=== PATIENT | female | born 1990 | race Caucasian/White ===

== ENCOUNTER 2017-01-06 06:09 | Inpatient (IN) | payer OTHER ==
[~2017-01-06] VITALS: Ht 165.1 cm; Wt 85.3 kg
[2017-01-06] MEDS ORDERED: Oxytocin 30 Units/500 mL LR 30 UNITS in IV Premix 1 EACH IV PRN (07:20)
[2017-01-06] MEDS ORDERED: Sodium Chloride LOK Flush 10 mL Syringe IVFLUSH PRN (07:20)
[2017-01-06] MEDS ORDERED: Hemorrhage Kit, Post Partum XX ONE (07:20)
[2017-01-06] MEDS ORDERED: Carboprost 250 mCg/mL Inj IM PRN (07:20)
[2017-01-06] MEDS ORDERED: Oxytocin 10 Unit/mL Inj IM PRN (07:20)
[2017-01-06] MEDS ORDERED: Methylergonovine 0.2 mg/mL Inj IM PRN (07:20)
[2017-01-06 08:03] LABS: Mean Corpuscular Hemoglobin 31.4 pg (27.0-35.0); Mean Corpuscular Volume 92.7 fL (81-100)
--- NOTE | 2017-01-06 09:19 | PCM.HPOB ---
Subjective Referring Provider: Admitting Physician: Miguel Angel Mcgrath MD Primary Care Physician: Miguel Angel Mcgrath MD Attending Physician: Miguel Angel Mcgrath MD Chief Complaint water broke at 3:15am History of Present History of Present Illness 26yo with generally unremarkable course presents for ruptured membranes. Testing consistent, cervical exam fingertip by nurse, no contractions , feeling well, no complaints. OB History: (1), Para (0) Obstetrical Complications: None Past Medical History Obstetrical History: Primiparous Gynecologic History: Unremarkable Medical History: Anxiety Disorder, No medications. Surgical History: Unremarkable Hx Tobacco Use: No Smoking Status: Never Smoker Past Family History Living Arrangement: with Family Genetic Screening/Counseling Genetic Screening/Counseling: Unknown Review of Systems ROS Neg except fluid drainage. Medications Home medications ranitidine, vitamins Allergy Coded Allergies: No Known Allergies (Unverified , 01/06/17) Exam Objective See Office records Constitutional: Well-developed HEENT: Atraumatic, Scleral Anicteric Abdomen: Gravid Skin: Rashes (No ) Neurological/Psychiatric: Alert, Oriented X3, Cooperative, No Acute Distress Neuro: Grossly Neurologically Intact Additional Information No cervical exam due to rupture Labs/Diagnostics Maternal Blood Type: O Hx Rho(D) Immune Globulin: No (Positive) Group B Strep Results: Negative Previous with GBS: No Rubella: Immune Lab History: Positive for: Hx Chicken Pox, Hx Herpes (Not during ) OB Intrapartum Assessment/Plan Problems: (1) Qualifiers: Weeks of gestation: 37 weeks Qualified Code: Z3A.37 - 37 weeks gestation of Plan: Ruptured, no signs of labor. Pt would like conservative/non- interventional approach. Monitor for 12 hours. If not racquel at 3pm, we'll start pitocin. Sooner per patient preference. Status: Acute ICD Code: Z33.1 Pain Evaluation: Adequate Pain Control Miguel Angel Mcgrath MD January 06, 2017 09:19
[2017-01-06] MEDS ORDERED: PREN1TAB87 PO (09:41)
[2017-01-06] MEDS: Oxytocin 30 Units/500 mL LR 30 UNITS in IV Premix 1 EACH IV PRN (15:02)
[2017-01-06] MEDS: Lactated Ringer's 1,000 ML IV PRN (15:02)
--- NOTE | 2017-01-06 19:11 | PCM.PNOBIP ---
Subjective Date of Service January 06, 2017 Subjective Not really feeling contractions much but started pitocin a few hours ago. Frustrated a little but otherwise no complaints. Pain Management: Good Pain Control, No or Minimal Pain Gastrointestinal: No N/V Activity: Ambulating Independently Group B Strep Results: Negative Rubella: Immune Blood Type: O Labs Laboratory Tests 01/06/17 07:50: White Blood Count 7.8, Red Blood Count 3.82, Hemoglobin 12.0, Hematocrit 35.4, Mean Corpuscular Volume 92.7, Mean Corpuscular Hemoglobin 31.4, Mean Corpuscular Hemoglobin Concent 33.9, Red Cell Distribution Width 12.5, Platelet Count 254 Exam Vital Signs Vital Signs Contraction frequency in minutes: MVUs: Vital Signs: VS reviewed, stable Heart Tracings Heart Tones Baseline bpm Heart Rate Accelleration: Present Heart Rate Deceleration: Absent Tocometry/IUPC Contraction frequency in minutes: MVUs: Sterile Vaginal Exam No exam due to rupture Exam General: Alert, Oriented X3, Cooperative, No Acute Distress OB Intrapartum Assessment/Plan Problems: (1) Qualifiers: Weeks of gestation: 37 weeks Qualified Code: Z3A.37 - 37 weeks gestation of Status: Acute ICD Code: Z33.1 Intrapartum plan: Start pitocin (continue, currently at 14. Discussed variable timeframe with PROM at term. ) Pain Evaluation: Adequate Pain Control Miguel Angel Mcgrath MD January 06, 2017 19:11
[2017-01-07] MEDS ORDERED: fentaNYL-PF 50 mCg/mL 2 mL Inj IVPUSH PRN (04:25)
--- NOTE | 2017-01-07 07:57 | PCM.PNOBIP ---
Subjective Date of Service January 07, 2017 Delivery plan: Spontaneous Vaginal Delivery Visit History PROM at 37 weeks, watched for 12 hours after rupture, due to her request, started pitocin yesterday afternoon. Overnight Pitocin increased per protocol up to 18 but developed worsening pain. Single dose fentanyl, cervical check showed still closed. Pitocin discontinued at that time -- about 4 hours ago. Pain Management: No or Minimal Pain Gastrointestinal: No N/V Activity: Ambulating Independently Group B Strep Results: Negative Rubella: Immune Blood Type: O Labs Laboratory Tests 01/06/17 07:50: White Blood Count 7.8, Red Blood Count 3.82, Hemoglobin 12.0, Hematocrit 35.4, Mean Corpuscular Volume 92.7, Mean Corpuscular Hemoglobin 31.4, Mean Corpuscular Hemoglobin Concent 33.9, Red Cell Distribution Width 12.5, Platelet Count 254 Exam Vital Signs Vital Signs Contraction frequency in minutes: MVUs: Heart Tracings Heart Tones Baseline 130 bpm Heart Rate Variability: Moderate Heart Rate Accelleration: Absent Heart Rate Deceleration: Absent Tocometry/IUPC Contraction frequency in minutes: MVUs:3-6 Exam General: Alert, Oriented X3, Cooperative, No Acute Distress OB Intrapartum Assessment/Plan Problems: (1) Qualifiers: Weeks of gestation: 37 weeks Qualified Code: Z3A.37 - 37 weeks gestation of Plan: Start cytotec after shower. Discussed options for approaching ripening/ augmentation, pain options, rationale for not doing epidural last night, length of time to delivery. Status: Acute ICD Code: Z33.1 Intrapartum Pain Management: May have epidural when desired Pain Evaluation: Adequate Pain Control Miguel Angel Mcgrath MD January 07, 2017 07:35
[2017-01-07] MEDS ORDERED: Ondansetron 2 mg/mL 2 mL Inj IVPUSH PRN ×2 (08:30→18:50)
[2017-01-07] MEDS: Misoprostol 25 mCg/0.25 Tablet VAGINAL PRN ×2 (09:21→14:17)
[2017-01-07] MEDS: Lactated Ringer's 1,000 ML IV PRN (18:48)
[2017-01-07] MEDS ORDERED: Lactated Ringer's 1,000 ML IV SCH (18:48)
[2017-01-07] MEDS ORDERED: Lactated Ringer's 500 ML IV ONE (18:48)
[2017-01-07] MEDS ORDERED: Atropine 1 mg/10 mL (Code) Syringe IVPUSH PRN (18:50)
[2017-01-07] MEDS ORDERED: EPHEDrine Sulfate 50 mg/mL Inj IVPUSH PRN (18:50)
[2017-01-07] MEDS ORDERED: fentaNYL 2 mCg/mL-Bupiv 0.125% 100 ML EPIDURAL SCH ×2 (18:50→19:55)
--- NOTE | 2017-01-07 18:50 | PCM.HPANE ---
Patient Data Surgeon Admitting Provider:Miguel Angel Mcgrath MD Attending Provider:Miguel Angel Mcgrath MD Primary Care Physician:Miguel Angel Mcgrath MD Other Provider: Reason for Visit LABOR LABOR Ht/WT & BMI Body Mass Index Allergies Coded Allergies: No Known Allergies (Unverified , 01/06/17) Past Anesthesia History Anesthesia History: Denies:: Abnormal Airway, Anesthesia Reactions, Difficult Intubation, Fam Anesthesia Reaction, Fam Malignant Hypertherm, Malignant Hyperthermia Medications Reported Medications Vit W-Ca,Fe,FA(<1 mg) ( Vitamins)1 Each Tablet1 Each PO DAILY 01/06/17 History History of ENT Problems?: No HEENT History: Denies:: Abnormal Airway Cataracts Difficult Intubation Dysphagia Glaucoma Hearing Problem Sinus Problem TMJ Denture Type: None Teeth Condition: Within Normal Limits Hx of Heart Problems?: No Cardiovascular History: Denies:: AICD Abdominal Aortic Aneurism Atrial Fibrillation Cardiac Surgery Chest Pain Congestive Heart Failure Coronary Artery Disease Edema Heart Murmur Hypertension Irregular Heartbeat Pacemaker Peripheral Vascular Rheumatic Fever Thrombophlebitis Valvular Heart Disease Hx of Respiratory Problem?: No Respiratory History: Denies:: Asthma COPD Chest Surgery Cough Dyspnea Emphysema Hemoptysis Oxygen Administration Pneumonia Pulmonary Embolism Tuberculosis Use of C-PAP Machine Use of Inhalers / NEBS Hx Neurologic Problems?: No Neurological History: Denies:: Alzheimer's Disease CVA Dementia Dizziness Headaches Multiple Sclerosis Parkinson's Disease Peripheral Neuropathy Seizures TIA Hx of GI Problems?: No Hx of Problems?: No Hx Musculoskeletal Problems?: No Hx Surgeries?: No Smoking Status: Never Smoker Stop/Bang Risk Assessment Category Category 1A: Patient has history of documented sleep apnea, and HAS NOT received any narcotic, sedative or anesthesia administration during this stay. Category 1B: Patient has history of documented sleep apnea, and HAS received any narcotic , sedative or anesthesia administration during this stay Category 2: Patient has SUSPECTED Obstructive Sleep Apnea, and HAS received any narcotic , sedative or anesthesia administration during this stay. Category 3: Patient has SUSPECTED Obstructive Sleep Apnea and HAS NOT received narcotic, sedative or anesthesia administration during this stay. Category 4: Outpatient in Procedural Areas with known sleep apnea or who screen positive for High Risk via the STOP/BANG questionnaire. Exam Exam General Appearance: Alert, Oriented X3, Cooperative, No Acute Distress, Moderate Distress HEENT/AIRWAY: MP 2, Neck Movement (from), Mouth Opening (wnl) Lungs: Normal Air Movement Meds/Labs/Diagnostics Admission Meds Current Medications Zolpidem Tartrate (Ambien) 5 mg ONCE ONCE PO Last administered on 01/06/17t 22 :54; Start 01/06/17 at 22:55; Stop 01/06/17 at 22:56; Status DC Labs Test 01/06/17 07:50 White Blood Count 7.8th/mm3 (3.8-10.1) Red Blood Count 3.82mil/mm3 (3.90-5.20) Hemoglobin 12.0g/dL (12.0-15.6) Hematocrit 35.4% (35.0-46.0) Mean Corpuscular Volume 92.7fL (81-100) Mean Corpuscular Hemoglobin 31.4pg (27.0-35.0) Mean Corpuscular Hemoglobin Concent 33.9% (32.0-37.0) Red Cell Distribution Width 12.5% (12.3-15.4) Platelet Count 254bil/L (150-400) Plan Impression Patient chart reviewed, patient interviewed and anesthestic plan with risks, benefits, and alternatives discussed, and informed consent obtained. ASA Physical Status: ASA2 Mod Systemic Disease Anesthetic Plan: Epidural Bene/Risks/Altern/Consents: Yes HP Complete Prior to Induction: Yes Alessandro Carmona MD January 07, 2017 18:50
--- NOTE | 2017-01-07 18:50 | PCM.PNOBIP ---
Subjective Date of Service January 07, 2017 Delivery plan: Spontaneous Vaginal Delivery Subjective More contractions with cytotec. Doesn't think she can manage the pain with pitocin. Wants epidural. Pain Management: Epidural (would like to get this now. ) Gastrointestinal: No N/V Activity: Ambulating Independently Group B Strep Results: Negative Rubella: Immune Blood Type: O RH Type: Negative Labs Laboratory Tests 01/06/17 07:50: White Blood Count 7.8, Red Blood Count 3.82, Hemoglobin 12.0, Hematocrit 35.4, Mean Corpuscular Volume 92.7, Mean Corpuscular Hemoglobin 31.4, Mean Corpuscular Hemoglobin Concent 33.9, Red Cell Distribution Width 12.5, Platelet Count 254 Exam Vital Signs Vital Signs Contraction frequency in minutes: MVUs: Vital Signs: VS reviewed, stable Heart Tracings Heart Tones Baseline bpm Heart Rate Variability: Moderate Heart Rate Category: I Tocometry/IUPC Contraction frequency in minutes: MVUs: Sterile Vaginal Exam Per nursing about 20 minutes ago. Cervical Dilation: 3 cms Cervical Effacement: 90 % Station: +1 Exam General: Alert, Oriented X3, Cooperative, No Acute Distress OB Intrapartum Assessment/Plan Problems: (1) Qualifiers: Weeks of gestation: 37 weeks Qualified Code: Z3A.37 - 37 weeks gestation of Plan: PROM at 37w, failed pitocin yesterday, ripening x2 today with cytotec now with significantly more favorable cervical exam. Epidural and start pitocin. Status: Acute ICD Code: Z33.1 Intrapartum Pain Management: May have epidural when desired Pain Evaluation: Pain not Controlled Miguel Angel Mcgrath MD January 07, 2017 18:50
[2017-01-07] MEDS: Oxytocin 30 Units/500 mL LR 30 UNITS in IV Premix 1 EACH IV PRN (18:56)
--- NOTE | 2017-01-07 19:38 | PCM.ANEP1 ---
Post Anesthesia Phase 1 PACU Phase 1 Assessment Anesthetic Administered: Epidural Level of Alertness: Awake, talking CARDENAS's with Equal Strength: No Pain: Yes Nausea or Vomiting: No Lungs: Normal Air Movement Dermatome Level: T10 (Umbilicus) Complications: No Follow up Care: No Alessandro Carmona MD January 07, 2017 19:38
[2017-01-08] MEDS ORDERED: Lactated Ringer's 1,000 ML IV SCH (00:24)
[2017-01-08] MEDS ORDERED: HYDROcodone-APAP 5-325 mg Tablet PO PRN (00:25)
[2017-01-08] MEDS ORDERED: Oxytocin 30 Units/500 mL LR 30 UNITS in IV Premix 1 EACH IV PRN (00:25)
[2017-01-08] MEDS ORDERED: Hemorrhage Kit, Post Partum XX ONE (00:25)
[2017-01-08] MEDS ORDERED: Methylergonovine 0.2 mg/mL Inj IM PRN (00:25)
[2017-01-08] MEDS ORDERED: Carboprost 250 mCg/mL Inj IM PRN (00:25)
[2017-01-08] MEDS ORDERED: Oxytocin 10 Unit/mL Inj IM PRN (00:25)
[2017-01-08] MEDS ORDERED: Benzocaine (Dermoplast) 20% 60 Gm Spray TOPICAL PRN (00:25)
[2017-01-08] MEDS ORDERED: Witch Hazel-Glycerin Pads TOPICAL PRN (00:25)
[2017-01-08] MEDS ORDERED: LANOlin HPA 7 Gm Ointment TOPICAL PRN (00:25)
--- NOTE | 2017-01-08 00:29 | PCM.OBVAG ---
Vaginal Delivery Date of Service January 08, 2017 Pre Operative Diagnosis Pre Operative Diagnosis 37w PROM with unremarkable course Post Operative Diagnosis Post Operative Diagnosis Normal Spontaneous Vaginal Delivery Procedure Obstetical Procedure: Normal Spontaneous Vaginal Delivery Indication for Procedure Induction: Induction of labor, Pitocin augmentation, SROM, Progressed normally through labor (after failed pitocin, cytotec ripening and repeat pitocin) Findings Obstetrical Findings: [place] (Female), Cord (3 Vessel), 1 minute (8), 5 minutes (9) Analgesia/Medications Obstetrical Anesthesia: Epidural Post Procedure Plan Post delivery Condition: Mom stable, Baby stable to nursery Miguel Angel Mcgrath MD January 08, 2017 00:29
[2017-01-08] MEDS ORDERED: Sodium Chloride LOK Flush 10 mL Syringe IVFLUSH SCH (00:30)
--- NOTE | 2017-01-08 16:33 | PCM.PNOBPP ---
Subjective Date of Service January 08, 2017 Post : Spontaneous Vaginal Delivery Pain Management: Good Pain Control (only ibuprofen) Gastrointestinal: No N/V Postop Activity: Ambulating Independently Group B Strep Results: Negative Rubella: Immune Blood Type: O RH Type: Negative Labs Laboratory Tests 01/06/17 07:50: White Blood Count 7.8, Red Blood Count 3.82, Hemoglobin 12.0, Hematocrit 35.4, Mean Corpuscular Volume 92.7, Mean Corpuscular Hemoglobin 31.4, Mean Corpuscular Hemoglobin Concent 33.9, Red Cell Distribution Width 12.5, Platelet Count 254 Exam Vital Signs Vital Signs: VS reviewed, stable Exam General: Alert ((Social rounds, no formal exam today.)) OB Post Assessment/Plan Problems: (1) Qualifiers: Weeks of gestation: 37 weeks Qualified Code: Z3A.37 - 37 weeks gestation of Status: Resolved ICD Code: Z33.1 Pain Evaluation: Adequate Pain Control Post plan: Discharge home tomorrow Miguel Angel Mcgrath MD January 08, 2017 16:33
--- NOTE | 2017-01-09 06:31 | PCM.DIOB ---
Obstetrical Disch Instruction Dates of Hospitalization Date of Hospital Admission January 06, 2017 at 06:40 Providers Admitting Physician: Miguel Angel Mcgrath MD Primary Care Physician: Miguel Angel Mcgrath MD Attending Physician: Miguel Angel Mcgrath MD Discharge Diagnosis Problems: (1) Qualifiers: Weeks of gestation: 37 weeks Qualified Code: Z3A.37 - 37 weeks gestation of Status: Resolved ICD Code: Z33.1 Diet Discharge Diet: No restrictions Activity Discharge Activity-General: Pelvic Rest for 6 weeks, Try not to overdue, Be up and about, Balance rest and activity, Activity as pain allows, Activity as energy allows Dressing and Incisional Care Hygiene: May shower Follow Up Plan Follow-up appointment: Weeks (6) Call your provider for: Fever or Chills, Shortness of breath, Heavy vaginal bleeding, Heavy bleeding, Epigastric pain, Excessive constipation, Vaginal discomfort, Red painful breasts Miguel Angel Mcgrath MD January 09, 2017 06:31
[2017-01-09 07:35] LABS: Mean Corpuscular Hemoglobin 31.4 pg (27.0-35.0); Mean Corpuscular Volume 94.6 fL (81-100)
--- NOTE | 2017-01-09 09:17 | PCM.DC.OB ---
Obstetrical Discharge Summary Date of Service January 09, 2017 Date of hospital admission January 06, 2017 at 06:40 Date of Discharge: January 09, 2017 Providers Admitting Physician: Miguel Angel Mcgrath MD Primary Care Physician: Miguel Angel Mcgrath MD Attending Physician: Miguel Angel Mcgrath MD Problems: (1) Qualifiers: Weeks of gestation: 37 weeks Qualified Code: Z3A.37 - 37 weeks gestation of Status: Resolved ICD Code: Z33.1 Invasive procedures , 01/07/17 Date of Procedure: January 07, 2017 Brief History and Physical: 26yo with generally unremarkable course presents for ruptured membranes. Testing consistent, cervical exam fingertip by nurse, no contractions , feeling well, no complaints. Hospital Course: She initially had a trial of Pitocin after observation because she did not want to intervene unless necessary. Pitocin got up to 18 milliunits but there was no cervical change. The next morning she got 2 doses of Cytotec with good interval change. Pitocin was then restarted and she followed a normal labor curve. She delivered the baby without complication, placenta without complication and has been doing well since. Breast-feeding. Uncertain contraception. Adequate pain control. She's been feeling somewhat anxious and took Ambien for insomnia last night as well as the previous night. Decreasing lochia. Vit W-Ca,Fe,FA(<1 mg) ( Vitamins) 1 Each Tablet 1 EACH PO DAILY (Reported) Discharge Medications: [id number] ibuprofen, vitamins. Discharge Diet: No restrictions Discharge Activity-General: Pelvic Rest for 6 weeks, Try not to overdue, Be up and about, Balance rest and activity, Activity as pain allows, Activity as energy allows Miguel Angel Mcgrath MD January 09, 2017 09:16
[2017-01-09 09:30] VITALS: BP 113/78; PULSE 80; RESP 16
== END 2017-01-09 10:59 | disposition home or self-care (01) | DRG 775 ==
LOC: FBCO 06:09 → FBC 06:40
PROVIDERS: ADMIT Family Medicine; ATTEND Family Medicine
PROC: 10E0XZZ Delivery of Products of Conception, External Approach (ICD-10-PCS; principal; 2017-01-07)
DX: O42.92 Full-term premature rupture of membranes, unspecified as to length of time between rupture and onset of labor (principal); O63.9 Long labor, unspecified; Z3A.37 37 weeks gestation of pregnancy; Z37.0 Single live birth; O69.81X0 Labor and delivery complicated by cord around neck, without compression, not applicable or unspecified